=== PATIENT | female | born 1995 | race Caucasian/White ===

== ENCOUNTER 2020-02-06 10:03 | Outpatient (REF) | payer OTHER, SELFPAY | END 2020-02-06 10:04 | disposition home or self-care (01) | LOC: HO.LAB 10:03 | PROVIDERS: Visit Provider Internal Medicine | DX: Z20.828 Contact with and (suspected) exposure to other viral communicable diseases (principal) | CPT/HCPCS: 36415; 87635 ==

== ENCOUNTER → 2020-02-09 08:19 | Outpatient (BNVA) | payer OTHER, SELFPAY | PROVIDERS: Visit Provider Dietitian, Registered | DX: Z76.89 Persons encountering health services in other specified circumstances (principal) ==

== ENCOUNTER 2020-03-08 07:39 | Outpatient (REF) | payer OTHER, SELFPAY ==
[2020-03-08 08:36] LABS: MANUAL DIFF FLAG NO
[2020-03-08 08:55] LABS: Basophils Absolute Auto 0.1 X10*3/uL (0.0-0.2); Basophils Percent Auto 0.7 % (0-2); Eosinophils Absolute Auto 0.1 X10*3/uL (0.0-0.4); Hematocrit 38.4 % (37-47); Hemoglobin 11.9 g/dl (12.0-16.0); Imm Gran Abs Auto 0.02 X10*3/uL (0.00-0.03); Imm Gran Pct Auto 0.3 % (0.0-0.4); Lymphocytes Absolute Auto 3.4 X10*3/uL (1.2-4.9); Lymphocytes Percent Auto 48.7 % (20-40); Mean Corpuscular Hemoglobin 26.6 pg (27.0-33.0); Mean Corpuscular Volume 85.9 fL (80-98); Mean Platelet Volume 11.7 fL (9.4-12.3); Monocytes Absolute Auto 0.5 X10*3/uL (0.1-1.2); Monocytes Percent Auto 7.4 % (2-11); Neutrophils Absolute Auto 2.9 X10*3/uL (2.0-8.3); Neutrophils Percent Auto 40.9 % (45-73); Platelet Count 245 X10*3/uL (160-400); Red Blood Count 4.47 X10*6/uL (4.20-5.50); Red Cell Distribution Width 13.6 % (11.0-16.0); White Blood Count 7.1 X10*3/uL (4.8-10.8)
[2020-03-08 09:26] LABS: Alanine Aminotransferase 12 U/L (0-31); Albumin Level 4.2 g/dL (3.5-5.0); Alkaline Phosphatase 77 U/L (39-117); Anion Gap 12 (12-20); Aspartate Amino Transferase 16 U/L (5-31); Bilirubin Total 0.4 mg/dL (0.0-1.0); Blood Urea Nitrogen 15 mg/dL (9-16); C Reactive Protein 1.09 mg/dL (< or = 0.50); Carbon Dioxide 27 mmol/L (22-29); Chloride 105 mmol/L (96-108); Cholesterol 184 mg/dL; Estimated Glomerular Filt Rate > 60; Glucose Random 75 mg/dL (60-115); HDL Cholesterol 50 mg/dL; Iron 73 mcg/dL (30-160); LDL Cholesterol Calculated 125 mg/dl; Percent Iron Saturation 23 % (15-50); Potassium 4.4 mmol/l (3.3-5.1); Sodium 140 mmol/L (135-145); Total Iron Binding Capacity 317 mcg/dL (228-428); Total Protein 7.3 g/dL (6.5-8.0); Triglycerides 49 mg/dL; Unsaturated Iron Binding 244 ug/dL
[2020-03-08 09:30] LABS: Estimated Average Glucose 105 mg/dL; Hemoglobin A1c % 5.3 %
[2020-03-08 09:47] LABS: Ferritin 89 ng/mL (10-122); TSH reflex Free T4 1.94 mIU/mL (0.32-4.0); Vitamin D 25-OH Total 19.9 ng/mL (>30)
[2020-03-08 09:59] LABS: Folate 6.2 ng/mL (> or = 4.0); Vitamin B12 578 pg/mL (200-900)
[2020-03-11 12:17] LABS: Insulin Level Total 9.5 uIU/mL
[2020-03-11 20:26] LABS: Calcium (PTHI) 9.6 mg/dL (8.6-10.2); PTHI 35 pg/mL (14-64)
[2020-03-12 02:56] LABS: Zinc 84 mcg/dL (60-130)
[2020-03-12 20:07] LABS: Vitamin A 28 mcg/dL (38-98)
[2020-03-14 14:41] LABS: Vitamin B1 <6 nmol/L (8-30)
== END 2020-03-08 07:40 | disposition home or self-care (01) ==
LOC: HO.LAB 07:39
PROVIDERS: Visit Provider Physician Assistant
DX: E66.3 Overweight (principal)
CPT/HCPCS: 36415; 80053; 80061; 82306; 82607; 82728; 82746; 83036; 83525; 83540; 83970; 84425; 84443; 84590; 84630; 85025; 86140

== ENCOUNTER → 2020-04-08 13:56 | Outpatient (BNVA) | payer OTHER, SELFPAY | PROVIDERS: PCP Surgery; Visit Provider Surgery | DX: E66.3 Overweight (principal); Z68.27 Body mass index [BMI] 27.0-27.9, adult; Z90.3 Acquired absence of stomach [part of] | CPT/HCPCS: 99212 ==

== ENCOUNTER → 2020-07-05 10:05 | Outpatient (BNVA) | payer MEDICAID, SELFPAY | PROVIDERS: PCP Surgery; Visit Provider Surgery | DX: E66.3 Overweight (principal); K91.2 Postsurgical malabsorption, not elsewhere classified; Z90.3 Acquired absence of stomach [part of]; Z68.26 Body mass index [BMI] 26.0-26.9, adult | CPT/HCPCS: 99212 ==

== ENCOUNTER 2020-07-25 09:19 | Outpatient (REF) | payer MEDICAID, SELFPAY ==
[2020-07-25 09:51] LABS: MANUAL DIFF FLAG NO
[2020-07-25 09:55] LABS: Basophils Percent Auto 0.5 % (0-2); Eosinophils Absolute Auto 0.1 X10*3/uL (0.0-0.4); Eosinophils Percent Auto 1.4 % (0-4); Hematocrit 36.4 % (37-47); Hemoglobin 11.4 g/dl (12.0-16.0); Imm Gran Abs Auto 0.01 X10*3/uL (0.00-0.03); Imm Gran Pct Auto 0.2 % (0.0-0.4); Lymphocytes Absolute Auto 3.3 X10*3/uL (1.2-4.9); Lymphocytes Percent Auto 51.6 % (20-40); Mean Corpuscular HGB Conc 31.3 g/dl (31.0-35.0); Mean Corpuscular Hemoglobin 26.9 pg (27.0-33.0); Mean Corpuscular Volume 85.8 fL (80-98); Mean Platelet Volume 10.9 fL (9.4-12.3); Monocytes Absolute Auto 0.5 X10*3/uL (0.1-1.2); Monocytes Percent Auto 7.5 % (2-11); Neutrophils Absolute Auto 2.5 X10*3/uL (2.0-8.3); Neutrophils Percent Auto 38.8 % (45-73); Platelet Count 216 X10*3/uL (160-400); Red Blood Count 4.24 X10*6/uL (4.20-5.50); Red Cell Distribution Width 13.7 % (11.0-16.0); White Blood Count 6.4 X10*3/uL (4.8-10.8)
[2020-07-25 10:04] LABS: Estimated Average Glucose 100 mg/dL; Hemoglobin A1c % 5.1 %
[2020-07-25 10:25] LABS: Alanine Aminotransferase 9 U/L (0-31); Albumin Level 4.2 g/dL (3.5-5.0); Alkaline Phosphatase 61 U/L (39-117); Anion Gap 12 (12-20); Aspartate Amino Transferase 15 U/L (5-31); Bilirubin Total 0.5 mg/dL (0.0-1.0); Blood Urea Nitrogen 18 mg/dL (9-16); Calcium 9.4 mg/dL (8.4-10.2); Carbon Dioxide 26 mmol/L (22-29); Chloride 106 mmol/L (96-108); Cholesterol 166 mg/dL; Estimated Glomerular Filt Rate > 60; Glucose Fasting 90 mg/dL (60-99); HDL Cholesterol 56 mg/dL; Iron 105 mcg/dL (30-160); LDL Cholesterol Calculated 102 mg/dl; Percent Iron Saturation 35 % (15-50); Potassium 4.6 mmol/L (3.3-5.1); Sodium 139 mmol/L (135-145); Total Iron Binding Capacity 304 mcg/dL (228-428); Total Protein 6.9 g/dL (6.5-8.0); Triglycerides 40 mg/dL; Unsaturated Iron Binding 199 ug/dL
[2020-07-25 10:47] LABS: Thyroid Stimulating Hormone 1.66 uIU/mL (0.32-4.0); Vitamin D 25-OH Total 24.7 ng/mL (>30)
[2020-07-25 10:50] LABS: Vitamin B12 607 pg/mL (200-900)
[2020-07-28 14:06] LABS: Zinc 72 mcg/dL (60-130)
[2020-07-30 12:22] LABS: Vitamin A 33 mcg/dL (38-98)
[2020-07-30 12:46] LABS: Vitamin B1 8 nmol/L (8-30)
== END 2020-07-25 09:20 | disposition home or self-care (01) ==
LOC: HO.LAB 09:19
PROVIDERS: Visit Provider Surgery
DX: Z01.818 Encounter for other preprocedural examination (principal); K91.2 Postsurgical malabsorption, not elsewhere classified; Z90.3 Acquired absence of stomach [part of]
CPT/HCPCS: 36415; 80053; 80061; 82306; 82607; 83036; 83540; 84425; 84443; 84590; 84630; 85025; 86140

== ENCOUNTER → 2020-12-06 13:53 | Outpatient (BNVA) | payer MEDICAID, SELFPAY | PROVIDERS: PCP Internal Medicine; Referring Provider Internal Medicine; Visit Provider Surgery | DX: K91.2 Postsurgical malabsorption, not elsewhere classified (principal); Z90.3 Acquired absence of stomach [part of] | CPT/HCPCS: 99212 ==

== ENCOUNTER → 2021-04-04 08:13 | Outpatient (BNVA) | payer MEDICAID, SELFPAY | PROVIDERS: PCP Internal Medicine; Visit Provider Dietitian, Registered | DX: E66.9 Obesity, unspecified (principal); Z68.26 Body mass index [BMI] 26.0-26.9, adult | CPT/HCPCS: 97803 ==

== ENCOUNTER 2022-03-19 19:22 | Emergency (ER) | payer MEDICAID, SELFPAY ==
--- NOTE | 2022-03-19 19:37 | ED_ITS ---
HPI - Abdominal Pain General Chief Complaint: General Medical Stated Complaint: tummy incision open areas Time Seen by Provider: 03/19/22 19:49 Related Data Home Medications Medication Instructions Recorded Confirmed calcium citrate 500 mg-vit D3 12.5 g PO BID 04/08/20 07/05/20 mcg (500 unit)/5 gram oral powder gyqscqla-zfifwdtl-lwji 45 mg-folic cap PO DAILY 04/08/20 07/05/20 acid 800 mcg-vit K 120 mcg capsule (Bariatric Multivitamins) Previous Rx's Medication Instructions Recorded cholecalciferol (vitamin D3) 50 50 mcg PO DAILY #30 caps 05/07/20 mcg (2,000 unit) capsule vitamin A palmitate 10,000 unit 20,000 unit PO DAILY 30 days #60 07/31/20 tablet tabs Allergies Allergy/AdvReac Type Severity Reaction Status Date / Time No Known Allergies Allergy Verified 12/06/20 14:01 [facility] Past Medical History Medical History No pertinent past medical history Surgical History H/O abdominoplasty History of sleeve gastrectomy Hx of breast augmentation Family History Family History Father No problems noted. Mother Hypertension Asthma Sister No problems noted. Sister No problems noted. Social History Social History Alcohol intake: never Patient Tobacco Use Status: Never used Tobacco Smoked in Last 30 Days: No Use of substances other than those prescribed or required for medical reasons: No Advance Directives: No Advance Directives Information Provided: Yes Patient : No Physical Exam ED Vital Signs: Vital Signs - 24 hr 03/19/22 19:38 03/19/22 20:13 03/19/22 22:00 Temperature 97 F 98.7 F 98.6 F Pulse Rate 88 70 60 Respiratory Rate 18 14 Blood Pressure 144/82 H 127/79 112/61 Pulse Oximetry 99 100 98 Oxygen Delivery Method Room Air Room Air Room Air BMI result Body Mass Index 30.1 Course Course Course Narrative: RME-- 26yo F with recent Tummy tuck in [place] 03/03 complicated by wound dehiscence s/p repair yesterday in [place] w/ absorbable sutures presenting c/o recurrent wound dehiscence w/drainage from wounds. Surgical site open with drainage. Labs, lactic/blood cx ordered in triage. Will need surgical consult MDM - Abdominal Pain Lab Data Result diagrams: 03/19/22 20:29 03/19/22 20:29 Labs: Lab Results 03/19/22 03/19/22 03/19/22 Range/Units 20:29 20:29 20:29 WBC 9.0 (4.8-10.8) X10*3/uL RBC 4.01 L (4.20-5.50) X10*6/uL Hgb 10.7 L (12.0-16.0) g/dl Hct 34.9 L (37.0-47.0) % MCV 87.0 (80.0-98.0) fL MCH 26.7 L (27.0-33.0) pg MCHC 30.7 L (31.0-35.0) g/dl RDW 13.4 (11.0-16.0) % Plt Count 612 H (160-400) X10*3/uL MPV 9.1 L (9.4-12.3) fL Immature Gran % (Auto) 1.2 H (0.0-0.4) % Neut % (Auto) 52.3 (45-73) % Lymph % (Auto) 34.3 (20-40) % Oxford % (Auto) 9.5 (2-11) % Eos % (Auto) 2.0 (0-4) % Baso % (Auto) 0.7 (0-2) % Lymph # (Auto) 3.1 (1.2-4.9) X10*3/uL Oxford # (Auto) 0.9 (0.1-1.2) X10*3/uL Eos # (Auto) 0.2 (0.0-0.4) X10*3/uL Baso # (Auto) 0.1 (0.0-0.2) X10*3/uL Abs Immat Gran (auto) 0.11 H (0.00-0.03) X10*3/uL Absolute Neuts (auto) 4.7 (2.0-8.3) x10*3/uL Absolute Nucleated RBC 0.000 (0.0-0.012) X10*3/uL Nucleated RBC % (auto) 0.0 (0.0-0.2) /100WBC PT 12.8 (10.0-13.1) SEC INR 1.1 (0.9-1.1) Sodium 141 (135-145) mmol/L Potassium 4.7 (3.3-5.1) mmol/L Chloride 105 (96-108) mmol/L Carbon Dioxide 28 (22-29) mmol/L Anion Gap 13 (12-20) BUN 11 (9-16) mg/dL Creatinine 0.75 (0.5-1.4) mg/dL Estim Creat Clear Calc 134.4 Estimated GFR > 60 Random Glucose 93 (60-115) mg/dL Lactic Acid (0.5-2.0) mmol/L Calcium 9.6 (8.4-10.2) mg/dL Total Bilirubin 0.3 (0.0-1.0) mg/dL Direct Bilirubin < 0.2 (0.0-0.5) mg/dL AST 19 (5-31) U/L ALT 31 (0-31) U/L Alkaline Phosphatase 70 (39-117) U/L Total Protein 7.5 (6.5-8.0) g/dL Albumin 4.0 (3.5-5.0) g/dL Lipase 27 (8-78) U/L // Range/Units 20:29 WBC (4.8-10.8) X10*3/uL RBC (4.20-5.50) X10*6/uL Hgb (12.0-16.0) g/dl Hct (37.0-47.0) % MCV (80.0-98.0) fL MCH (27.0-33.0) pg MCHC (31.0-35.0) g/dl RDW (11.0-16.0) % Plt Count (160-400) X10*3/uL MPV (9.4-12.3) fL Immature Gran % (Auto) (0.0-0.4) % Neut % (Auto) (45-73) % Lymph % (Auto) (20-40) % Oxford % (Auto) (2-11) % Eos % (Auto) (0-4) % Baso % (Auto) (0-2) % Lymph # (Auto) (1.2-4.9) X10*3/uL Oxford # (Auto) (0.1-1.2) X10*3/uL Eos # (Auto) (0.0-0.4) X10*3/uL Baso # (Auto) (0.0-0.2) X10*3/uL Abs Immat Gran (auto) (0.00-0.03) X10*3/uL Absolute Neuts (auto) (2.0-8.3) x10*3/uL Absolute Nucleated RBC (0.0-0.012) X10*3/uL Nucleated RBC % (auto) (0.0-0.2) /100WBC PT (10.0-13.1) SEC INR (0.9-1.1) Sodium (135-145) mmol/L Potassium (3.3-5.1) mmol/L Chloride (96-108) mmol/L Carbon Dioxide (22-29) mmol/L Anion Gap (12-20) BUN (9-16) mg/dL Creatinine (0.5-1.4) mg/dL Estim Creat Clear Calc Estimated GFR Random Glucose (60-115) mg/dL Lactic Acid 0.8 (0.5-2.0) mmol/L Calcium (8.4-10.2) mg/dL Total Bilirubin (0.0-1.0) mg/dL Direct Bilirubin (0.0-0.5) mg/dL AST (5-31) U/L ALT (0-31) U/L Alkaline Phosphatase (39-117) U/L Total Protein (6.5-8.0) g/dL Albumin (3.5-5.0) g/dL Lipase (8-78) U/L Discharge Plan Discharge Clinical Impression: Dehiscence of surgical wound Patient Disposition: Home, Self-Care Instructions: Wound Dehiscence (ED) Additional Instructions: Please cover your wound with dry gauzes and change them at least twice a day. Please follow-up with your primary care physician and surgery tomorrow. If you have any worsening or new symptoms, please return to the emergency room or call 911 Prescriptions: No Action cholecalciferol (vitamin D3) 50 mcg (2,000 unit) capsule 50 mcg PO DAILY Qty: 30 5RF vitamin A palmitate 10,000 unit tablet 20,000 unit PO DAILY 30 Days Qty: 60 0RF Bariatric Multivitamins 45 mg iron- 800 mcg-120 mcg capsule PO DAILY calcium citrate-vitamin D3 500 mg-12.5 mcg /5 gram powder PO BID Referrals: Michele Little MD [Physician] - 1 day Interventions: ED Discharge Assessment Last Done: 03/20/22 00:17 Discharge Date/Time: 03/20/22 00:00
[2022-03-19 19:38] VITALS: BP 144/82; PULSE 88; RESP 18; TEMP 36.1; O2SAT 99; BMI 30.1
--- NOTE | 2022-03-19 20:05 | ED_ITS ---
HPI - General Adult General Chief complaint: General Medical Stated complaint: tummy incision open areas Time Seen by Provider: 03/19/22 19:49 Source: patient Mode of arrival: ambulatory Limitations: no limitations History of Present Illness HPI narrative: Patient comes to emergency room complaining of a wound dehiscence from a surgery. Patient states that on March 03, she had a tummy tuck surgery which was done in [facility]. On March 17, patient had a major dehiscence of the wound, she went back to her surgeon in [facility] who applied internal stitches. Patient flew back on the and patient comes in complaining that the wound is opening again. Patient denies any fever or chills, no pus disch arge. Patient states that her surgeon told her that in a few days, the external sutures she can cut him out herself. Patient does not have any follow-up with any surgeon. Of note, patient had a gastric sleeve surgery done here at [facility] in 2019. Related Data Home Medications Medication Instructions Recorded Confirmed calcium citrate 500 mg-vit D3 12.5 g PO BID 04/08/20 07/05/20 mcg (500 unit)/5 gram oral powder fpangzzm-tdowtxpa-gzka 45 mg-folic cap PO DAILY 04/08/20 07/05/20 acid 800 mcg-vit K 120 mcg capsule (Bariatric Multivitamins) Previous Rx's Medication Instructions Recorded cholecalciferol (vitamin D3) 50 50 mcg PO DAILY #30 caps 05/07/20 mcg (2,000 unit) capsule vitamin A palmitate 10,000 unit 20,000 unit PO DAILY 30 days #60 07/31/20 tablet tabs Allergies Allergy/AdvReac Type Severity Reaction Status Date / Time No Known Allergies Allergy Verified 12/06/20 14:01 Review of Systems Review of Systems: Constitutional : No Weight loss, No Fever, No Chills, No Night Sweats, No Fatigue, No Malaise ENT/Mouth : No Hearing loss, No Ear Pain, No Nasal Congestion, No Sinus Pain, No Hoarseness, No sore throat, No Rhinorrhea, No Swallowing Difficulty Eyes: No Eye Pain, No Swelling, No Redness, No Foreign Body, No Discharge, No Vision Changes Cardiovascular : No Chest Pain, No SOB, No Dyspnea on Exertion, No Orthopnea, No Edema, No Palpitations Respiratory : No Cough, No Sputum, No Wheezing, No Smoke Exposure, No Dyspnea Gastrointestinal : No Nausea, No Vomiting, No Diarrhea, No Constipation, No abdominal Pain, No Hematochezia, No Melena Genitourinary : no irregular bleeding, No Dysuria, No Urinary Frequency, No Hematuria, No Urinary Incontinence, No Urgency, No Flank Pain, No Urinary Flow Changes, No Hesitancy Musculoskeletal : No joint pain, No Myalgias, No Joint Swelling Skin : Complaining of a tummy tuck surgical deadhesion Neuro : No Weakness, No Numbness, No Paresthesias, No Loss of Consciousness, No Dizziness, No Headache Psych : No Anxiety/Panic, No Depression, No SI/HI/AH/VH, No Social Issues, Heme/Lymph: No Bruising, No Bleeding,No Lymphadenopathy Endocrine : No Polyuria, No Polydipsia, No Temperature Intolerance PMFSH Past Medical History Medical History No pertinent past medical history Surgical History H/O abdominoplasty History of sleeve gastrectomy Hx of breast augmentation Family History Family History Father No problems noted. Mother Hypertension Asthma Sister No problems noted. Sister No problems noted. Social History Social History Alcohol intake: never Patient Tobacco Use Status: Never used Tobacco Smoked in Last 30 Days: No Use of substances other than those prescribed or required for medical reasons: No Advance Directives: No Advance Directives Information Provided: Yes Patient : No Physical Exam ED Vital Signs: Vital Signs - 24 hr 03/19/22 19:38 03/19/22 20:13 03/19/22 22:00 Temperature 97 F 98.7 F 98.6 F Pulse Rate 88 70 60 Respiratory Rate 18 14 Blood Pressure 144/82 H 127/79 112/61 Pulse Oximetry 99 100 98 Oxygen Delivery Method Room Air Room Air Room Air BMI result Body Mass Index 30.1 Const Other: Appearance: Alert. Oriented X3. No acute distress. Eyes: Pupils equal, round and reactive to light. ENT: Pharynx normal. Neck: Normal inspection. Neck supple. No lymph nodes noted. No crepitus CVS: Normal heart rate and rhythm. Pulses normal. Normal S1 and S2 Respiratory: No respiratory distress. Breath sounds normal. No Wheezing. No rales Abdomen: Soft and nontender. No rigidity. No distention. See skin below Skin: Skin warm and dry. Surgical deadhesion in the lower abdomen Extremities: No lower extremity edema. No Lacerations. No Rash Neuro: Oriented X 3. No motor deficit. No sensory deficit. Moving all extremities. No slurred speech. CN 2 through 12 grossly intact Psych: calm, cooperative, normal affect Course Course Course Narrative: All of patient's labs are pending Patient's white blood cell count and lactic acid within normal limits. Patient is asymptomatic, has no pain. I discussed the patient with Dr. Little. Patient will follow up in outpatient basis. Medical Decision Making Lab Data Result diagrams: 03/19/22 20:29 03/19/22 20:29 Labs: Lab Results 03/19/22 03/19/22 03/19/22 Range/Units 20:29 20:29 20:29 WBC 9.0 (4.8-10.8) X10*3/uL RBC 4.01 L (4.20-5.50) X10*6/uL Hgb 10.7 L (12.0-16.0) g/dl Hct 34.9 L (37.0-47.0) % MCV 87.0 (80.0-98.0) fL MCH 26.7 L (27.0-33.0) pg MCHC 30.7 L (31.0-35.0) g/dl RDW 13.4 (11.0-16.0) % Plt Count 612 H (160-400) X10*3/uL MPV 9.1 L (9.4-12.3) fL Immature Gran % (Auto) 1.2 H (0.0-0.4) % Neut % (Auto) 52.3 (45-73) % Lymph % (Auto) 34.3 (20-40) % Jackson % (Auto) 9.5 (2-11) % Eos % (Auto) 2.0 (0-4) % Baso % (Auto) 0.7 (0-2) % Lymph # (Auto) 3.1 (1.2-4.9) X10*3/uL Jackson # (Auto) 0.9 (0.1-1.2) X10*3/uL Eos # (Auto) 0.2 (0.0-0.4) X10*3/uL Baso # (Auto) 0.1 (0.0-0.2) X10*3/uL Abs Immat Gran (auto) 0.11 H (0.00-0.03) X10*3/uL Absolute Neuts (auto) 4.7 (2.0-8.3) x10*3/uL Absolute Nucleated RBC 0.000 (0.0-0.012) X10*3/uL Nucleated RBC % (auto) 0.0 (0.0-0.2) /100WBC PT 12.8 (10.0-13.1) SEC INR 1.1 (0.9-1.1) Sodium 141 (135-145) mmol/L Potassium 4.7 (3.3-5.1) mmol/L Chloride 105 (96-108) mmol/L Carbon Dioxide 28 (22-29) mmol/L Anion Gap 13 (12-20) BUN 11 (9-16) mg/dL Creatinine 0.75 (0.5-1.4) mg/dL Estim Creat Clear Calc 134.4 Estimated GFR > 60 Random Glucose 93 (60-115) mg/dL Lactic Acid (0.5-2.0) mmol/L Calcium 9.6 (8.4-10.2) mg/dL Total Bilirubin 0.3 (0.0-1.0) mg/dL Direct Bilirubin < 0.2 (0.0-0.5) mg/dL AST 19 (5-31) U/L ALT 31 (0-31) U/L Alkaline Phosphatase 70 (39-117) U/L Total Protein 7.5 (6.5-8.0) g/dL Albumin 4.0 (3.5-5.0) g/dL Lipase 27 (8-78) U/L // Range/Units 20:29 WBC (4.8-10.8) X10*3/uL RBC (4.20-5.50) X10*6/uL Hgb (12.0-16.0) g/dl Hct (37.0-47.0) % MCV (80.0-98.0) fL MCH (27.0-33.0) pg MCHC (31.0-35.0) g/dl RDW (11.0-16.0) % Plt Count (160-400) X10*3/uL MPV (9.4-12.3) fL Immature Gran % (Auto) (0.0-0.4) % Neut % (Auto) (45-73) % Lymph % (Auto) (20-40) % Jackson % (Auto) (2-11) % Eos % (Auto) (0-4) % Baso % (Auto) (0-2) % Lymph # (Auto) (1.2-4.9) X10*3/uL Jackson # (Auto) (0.1-1.2) X10*3/uL Eos # (Auto) (0.0-0.4) X10*3/uL Baso # (Auto) (0.0-0.2) X10*3/uL Abs Immat Gran (auto) (0.00-0.03) X10*3/uL Absolute Neuts (auto) (2.0-8.3) x10*3/uL Absolute Nucleated RBC (0.0-0.012) X10*3/uL Nucleated RBC % (auto) (0.0-0.2) /100WBC PT (10.0-13.1) SEC INR (0.9-1.1) Sodium (135-145) mmol/L Potassium (3.3-5.1) mmol/L Chloride (96-108) mmol/L Carbon Dioxide (22-29) mmol/L Anion Gap (12-20) BUN (9-16) mg/dL Creatinine (0.5-1.4) mg/dL Estim Creat Clear Calc Estimated GFR Random Glucose (60-115) mg/dL Lactic Acid 0.8 (0.5-2.0) mmol/L Calcium (8.4-10.2) mg/dL Total Bilirubin (0.0-1.0) mg/dL Direct Bilirubin (0.0-0.5) mg/dL AST (5-31) U/L ALT (0-31) U/L Alkaline Phosphatase (39-117) U/L Total Protein (6.5-8.0) g/dL Albumin (3.5-5.0) g/dL Lipase (8-78) U/L Discharge Plan Discharge Clinical Impression: Dehiscence of surgical wound Patient Disposition: Home, Self-Care Instructions: Wound Dehiscence (ED) Additional Instructions: Please cover your wound with dry gauzes and change them at least twice a day. Please follow-up with your primary care physician and surgery tomorrow. If you have any worsening or new symptoms, please return to the emergency room or call 911 Prescriptions: No Action cholecalciferol (vitamin D3) 50 mcg (2,000 unit) capsule 50 mcg PO DAILY Qty: 30 5RF vitamin A palmitate 10,000 unit tablet 20,000 unit PO DAILY 30 Days Qty: 60 0RF Bariatric Multivitamins 45 mg iron- 800 mcg-120 mcg capsule PO DAILY calcium citrate-vitamin D3 500 mg-12.5 mcg /5 gram powder PO BID Referrals: Michele Little MD [Physician] - 1 day
--- OUTSIDE RECORDS SUMMARY | 2022-03-19 20:11 | XMS_ITS | Continuity of Care Document ---
:1995 Author Organization [facility] Adult Address [address] [place] [address]- Care Team Providers Name Role Phone Hammad ROSE, Amarilys Primary Care Physician [place] [facility] [place] 07[place]20 - 10/10/20 [facility] [address] [place] [address]- Attending Physician: Demetrius Berry MD Allergies, Adverse Reactions, Alerts Substance Reaction Severity Status NKA Active Medications nortriptyline 10 mg oral capsule 1 capsule = 10 mg, By Mouth, Daily at bedtime, Increase after 1 week to 2 at night, # 60 capsule, 6 Refills, Maintenance, 09/01/13 15:23:09, 1 capsule By Mouth Daily at bedtime,Instr:Increase after 1 week to 2 at night Start Date: 09/01/13 Status: Orderedrizatriptan 10 mg oral tablet See Instructions, 1 tablet By Mouth for headache. May repeat in 2 hrs PRN. This replces 5 mg dose. 2bottles, one for school, # 9 tablet, 1 Refills, Maintenance, 09/01/13 15:20:38, 1 tablet By Mouth for headache. May repeat in 2 hrs PRN. This replces... Start Date: 09/01/13 Status: Ordered Problem List Condition Effective Dates Status Health Status Informant S/P gastric surgery(Confirmed)1 Active Migraine with aura(Confirmed) Active Morbid obesity(Confirmed) Active Encounter to establish care(Confirmed) Active 1Gastric sleeve surgery in July 2019 Social History Social History Type Response Smoking Status Never smoker entered on: 07/30/15 Sex
--- OUTSIDE RECORDS SUMMARY | 2022-03-19 20:11 | XMS_ITS | Continuity of Care Document ---
:1995 Author Organization [facility] Adult Address [address] [place] [id number]- Care Team Providers Name Role Phone Amarilys Cueva NP Primary Care Physician [place] [facility] [place]/20 [facility] Adult [address] [place] [id number]- Encounter Diagnosis Migraine with aura (Discharge Diagnosis) - 07/30/20 Morbid obesity (Discharge Diagnosis) - 07/30/20 Encounter to establish care (Discharge Diagnosis) - 07/30/20 S/P gastric surgery (Discharge Diagnosis) - 07/30/20 Attending Physician: Demetrius Berry MD Referring Physician: Amarilys Cueva NP Allergies, Adverse Reactions, Alerts Substance Reaction Severity [...] Active 1Gastric sleeve surgery in July 2019 Diagnosis Diagnosis Type Effective Dates Health Status Clinical In formant Service S/P gastric Discharge 07/30/20 surgery Diagnosis Encounter to Discharge 07/30/20 establish care Diagnosis Migraine with Discharge 07/30/20 aura Diagnosis Morbid obesity Discharge 07/30/20 Diagnosis Procedures Procedure Date Related Diagnosis Body Site Status Hx of Gastric sleeve surgery1 Completed arch 2019 Social History Social History Type Response Smoking Status Never smoker entered on: 07/30/15 Sex
--- OUTSIDE RECORDS SUMMARY | 2022-03-19 20:11 | XMS_ITS | Continuity of Care Document ---
:1995 Author Organization [facility] Adult Address [address] [place] [address]- Care Team Providers Name Role Phone Hammad ROSE, Amarilys Primary Care Physician [place] [facility] [place]20 - 08/29/20 [facility] Adult [address] [place] [address]- Attending Physician: Lindsay Caicedo Admitting Physician: Lindsay Caicedo Referring Physician: Admtr ArWillie Allergies, Adverse Reactions, Alerts Substance Reaction Severity [...]
--- OUTSIDE RECORDS SUMMARY | 2022-03-19 20:11 | XMS_ITS | Continuity of Care Document ---
:1995 Author Organization [facility] Adult Address [address] [place] [address]- Care Team Providers Name Role Phone Hammad ROSE, Amarilys Primary Care Physician Encounter [facility] [place] Date(s): 09/10/20 - 10/10/20 [facility] Adult [address] [place] [address]- Attending Physician: Lindsay Caicedo Admitting Physician: Lindsay [...]
[2022-03-19 20:13] VITALS: BP 127/79; PULSE 70; RESP 14; TEMP 37.1; O2SAT 100
[2022-03-19 20:31] LABS: MANUAL DIFF FLAG NO
[2022-03-19 20:33] LABS: Basophils Absolute Auto 0.1 X10*3/uL (0.0-0.2); Basophils Percent Auto 0.7 % (0-2); Eosinophils Absolute Auto 0.2 X10*3/uL (0.0-0.4); Hematocrit 34.9 % (37.0-47.0); Hemoglobin 10.7 g/dl (12.0-16.0); Imm Gran Abs Auto 0.11 X10*3/uL (0.00-0.03); Imm Gran Pct Auto 1.2 % (0.0-0.4); Lymphocytes Absolute Auto 3.1 X10*3/uL (1.2-4.9); Lymphocytes Percent Auto 34.3 % (20-40); Mean Corpuscular HGB Conc 30.7 g/dl (31.0-35.0); Mean Corpuscular Hemoglobin 26.7 pg (27.0-33.0); Mean Platelet Volume 9.1 fL (9.4-12.3); Monocytes Absolute Auto 0.9 X10*3/uL (0.1-1.2); Monocytes Percent Auto 9.5 % (2-11); Neutrophils Absolute Auto 4.7 x10*3/uL (2.0-8.3); Neutrophils Percent Auto 52.3 % (45-73); Platelet Count 612 X10*3/uL (160-400); Red Blood Count 4.01 X10*6/uL (4.20-5.50); Red Cell Distribution Width 13.4 % (11.0-16.0)
[2022-03-19 20:43] LABS: Lactic Acid 0.8 mmol/L (0.5-2.0)
[2022-03-19 20:47] LABS: Alanine Aminotransferase 31 U/L (0-31); Alkaline Phosphatase 70 U/L (39-117); Anion Gap 13 (12-20); Aspartate Amino Transferase 19 U/L (5-31); Bilirubin Direct < 0.2 mg/dL (0.0-0.5); Bilirubin Total 0.3 mg/dL (0.0-1.0); Blood Urea Nitrogen 11 mg/dL (9-16); Calcium 9.6 mg/dL (8.4-10.2); Carbon Dioxide 28 mmol/L (22-29); Chloride 105 mmol/L (96-108); Creatinine Clr Calc Pharmacy 134.4; Estimated Glomerular Filt Rate > 60; Glucose Random 93 mg/dL (60-115); Lipase 27 U/L (8-78); Potassium 4.7 mmol/L (3.3-5.1); Sodium 141 mmol/L (135-145); Total Protein 7.5 g/dL (6.5-8.0)
[2022-03-19 21:15] LABS: INTERNATIONAL NORM RATIO 1.1 (0.9-1.1); Prothrombin Time 12.8 SEC (10.0-13.1)
[2022-03-19 22:00] VITALS: BP 112/61; PULSE 60; TEMP 37; O2SAT 98
== END 2022-03-20 | disposition home or self-care (01) ==
PROVIDERS: Physician Assistant; Emergency Provider Emergency Medicine
DX: T81.30XA Disruption of wound, unspecified, initial encounter (principal); Y83.9 Surgical procedure, unspecified as the cause of abnormal reaction of the patient, or of later complication, without mention of misadventure at the time of the procedure; Y92.9 Unspecified place or not applicable; Z79.899 Other long term (current) drug therapy
CPT/HCPCS: 36415; 80048; 80076; 83605; 83690; 85025; 85610; 87040; 99283; 99284

== ENCOUNTER 2023-02-04 04:56 | Emergency (ER) | payer OTHER, SELFPAY ==
[2023-02-04 05:07] VITALS: BP 131/83; PULSE 98; RESP 16; TEMP 36.1; O2SAT 99; BMI 31.6
[2023-02-04 05:16] LABS: IDNOW Serial# 08D9AD1C; Strep A Nucleic Acid Negative (Negative)
--- NOTE | 2023-02-04 05:36 | ED.GENADULT ---
HPI - General Adult General Chief complaint: General Medical Stated complaint: difficulty swallowing Time Seen by Provider: 02/04/23 05:13 Source: patient Mode of arrival: ambulatory Limitations: no limitations History of Present Illness HPI narrative: Tingling of sore throat since last night with history of left lower wisdom tooth problem in the past but nothing lately does have pain will choose swallows no fever no chills no other family member sick patient a rapid strep test done which was negative no cough no fever no chills Related Data Home Medications Medication Instructions Recorded Confirmed calcium citrate 500 mg-vit D3 12.5 g PO BID 04/08/20 07/05/20 mcg (500 unit)/5 gram oral powder bvgdxawx-yagstztx-uyib 45 mg-folic cap PO DAILY 04/08/20 07/05/20 acid 800 mcg-vit K 120 mcg capsule (Bariatric Multivitamins) Previous Rx's Medication Instructions Recorded cholecalciferol (vitamin D3) 50 50 mcg PO DAILY #30 caps 05/07/20 mcg (2,000 unit) capsule vitamin A palmitate 3,000 mcg 20,000 unit PO DAILY 30 days #60 07/31/20 (10,000 unit) tablet tabs amoxicillin 875 mg tablet 875 mg PO BID #20 tabs 02/04/23 ibuprofen 600 mg tablet 600 mg PO Q6H PRN fever or pain 02/04/23 #30 tabs Allergies Allergy/AdvReac Type Severity Reaction Status Date / Time No Known Allergies Allergy Verified 12/06/20 14:01 Review of Systems Review of Systems: Yes all other systems are reviewed and are negative PMFSH Past Medical History Medical History No pertinent past medical history Surgical History H/O abdominoplasty Hx of breast augmentation History of sleeve gastrectomy Family History Family History Father No problems noted. Mother Hypertension Asthma Sister No problems noted. Sister No problems noted. Social History Social History Alcohol intake: never Patient Tobacco Use Status: Never used Tobacco Advance Directives: No Advance Directives Information Provided: Yes Physical Exam ED Vital Signs: Vital Signs - 24 hr 02/04/23 05:07 Temperature 97.0 F Pulse Rate 98 Respiratory Rate 16 Blood Pressure 131/83 Pulse Oximetry 99 Oxygen Delivery Method Room Air BMI result Body Mass Index 31.6 Appearance: Alert. Oriented X3. No acute distress. ENT: Pharynx erythematous+ no exudate gumline normal no tenderness no active cavity Oral Mucosa moist Neck: Normal inspection. Neck supple. CVS: Normal heart rate and rhythm. Pulses normal. Respiratory: No respiratory distress. Equal air entry bilateral, no wheezing/rales/rhonchi Medical Decision Making Medical Decision Making [facility] Narrative: Patient clinically acute pharyngitis likely strep throat although rapid strep is negative would give antibiotic discharge patient home Lab Data [facility] Lab Attestation statement: I reviewed the patient's lab results. Labs: Lab Results 02/04/23 Range/Units 05:05 S. pyogenes GrpA CONRADO Negative (Negative) Discharge Plan Discharge Clinical Impression: Acute pharyngitis Patient Disposition: Home, Self-Care Instructions: Pharyngitis (ED) Additional Instructions: Saline gargles as advised, possibly have strep pharyngitis although test is negative Antibiotic and pain medication as prescribed Follow with PCP as needed Prescriptions: New amoxicillin 875 mg tablet 875 mg PO BID Qty: 20 0RF ibuprofen 600 mg tablet 600 mg PO Q6H PRN (Reason: fever or pain) Qty: 30 0RF No Action cholecalciferol (vitamin D3) 50 mcg (2,000 unit) capsule 50 mcg PO DAILY Qty: 30 5RF vitamin A palmitate 10,000 unit tablet 20,000 unit PO DAILY 30 Days Qty: 60 0RF Bariatric Multivitamins 45 mg iron- 800 mcg-120 mcg capsule PO DAILY calcium citrate-vitamin D3 500 mg-12.5 mcg /5 gram powder PO BID
[2023-02-04] MEDS: Amoxicillin 500 MG CAPSULE PO (05:49)
[2023-02-04] MEDS: Ibuprofen 600 MG TABLET PO (05:49)
== END 2023-02-04 05:55 | disposition home or self-care (01) ==
PROVIDERS: Emergency Provider Internal Medicine
DX: J02.9 Acute pharyngitis, unspecified (principal); Z90.3 Acquired absence of stomach [part of]
CPT/HCPCS: 87651; 99283

== ENCOUNTER → 2023-04-05 10:57 | Outpatient (BNVA) | payer OTHER, SELFPAY | PROVIDERS: Visit Provider Physician Assistant Surgical ==

== ENCOUNTER 2023-04-09 16:17 | Outpatient (AMB) | payer OTHER, SELFPAY ==
--- NOTE | 2023-04-05 10:59 | MHC.OFFVISWM ---
Intake VS Expanded 04/05/23 11:09 BP 119/74 Blood Pressure Location Rt brachial Blood Pressure Position Sitting Pulse 71 Pulse Source Pulse Oximeter Temp 97.6 F Temperature Source Temporal Artery Scan Pulse Oximetry 98 Oxygen Delivery Method Room Air Height 5 ft 8 in Weight 211 lb 3.2 oz BMI 32.1 Body Fat % 40.6 Body Fat Mass 85.8 Fat Free Mass 125.2 Visceral Fat Rating 0 Body Water % 42.6 Body Water Mass 90.0 Muscle Mass/Score 118.8 Basal Metabolic Rate/Score 1,774 Intake Visit Reasons: (OV) PO LSG 07/05/2019 Allergies No Known Allergies Allergy (Verified 04/05/23 11:03) PFSH Medical History No pertinent past medical history Surgical History H/O abdominoplasty Hx of breast augmentation History of sleeve gastrectomy Family History Father No problems noted. Mother Hypertension Asthma Sister No problems noted. Sister No problems noted. Social History (Updated 04/05/23 @ 11:04 by Daylin Mohr CMA) Alcohol intake: current Alcohol intake frequency: holidays/special occasions only Patient Tobacco Use Status: Never used Tobacco Coding
[2023-04-05 11:09] VITALS: BP 119/74; PULSE 71; TEMP 36.4; O2SAT 98; BMI 32.1
[2023-04-09 15:53] VITALS: BMI 32.1
--- NOTE | 2023-04-09 15:53 | MHC.OFFVISWM ---
Intake VS Expanded 04/05/23 11:09 04/09/23 15:53 BP 119/74 Blood Pressure Location Rt brachial Blood Pressure Position Sitting Pulse 71 Pulse Source Pulse Oximeter Temp 97.6 F Temperature Source Temporal Artery Scan Pulse Oximetry 98 Oxygen Delivery Method Room Air Height 5 ft 8 in Weight 211 lb 3.2 oz BMI 32.1 32.1 Body Fat % 40.6 Body Fat Mass 85.8 Fat Free Mass 125.2 Visceral Fat Rating 0 Body Water % 42.6 Body Water Mass 90.0 Muscle Mass/Score 118.8 Basal Metabolic Rate/Score 1,774 Intake Visit Reasons: (TV) PO LSG 07/05/2019 [employer] Required: No Allergies No Known Allergies Allergy (Verified 04/05/23 11:03) Medication List - Last Reconciled 04/09/23 by ANISHA Schuster calcium citrate-vitamin D3 500 mg-12.5 mcg /5 gram grams PO BID zukpwrbhiksa-jnw-ugis-FA-vit K 45 mg iron- 800 mcg-120 mcg (Bariatric Multivitamins) caps PO DAILY HPI HPI Comments History of Present Illness Details The patient is a pleasant 27-year-old female who returns to the office. She is approximately 3 years 9 months status post sleeve gastrectomy performed by Dr. Eaton on 07/15/2019. Her initial weight on 03/14/2019 was 272.6 lb with and operative weight of 247.2 lb she was last seen in the office in April 2021 with a weight of 171 lb and BMI of 25.9. She states over the last 2 years she has gone through several life changes and was depressed. She feels as though she has been more consistent over the last 5 months. She wants to re-start a healthy habit lifestyle. wake 830 am, bed at MN, meal at 2, work 2-8 pm meal at noon. work as an estPeopleAdmintician, [employer] states her goal is to get back in healthy habits and achieve a weight of 160-165 pounds. Meal plan: protein shake, Premier protein RTD, 9 am or 1030, 11 am based on work schedule lunch 2-3 pm - grains w protein and side salad meal 9 pm - fast food drinking 64 oz water daily, no soda or juice ETOH 2 x per month wine or liquor, 1-2, no tobacco, no cannabis Exercise plan: pelaton at home 3-4 x per week 30-45 minutes, not tracking calories. [facility]LY [facility] Medical History No pertinent past medical history Surgical History H/O abdominoplasty Hx of breast augmentation History of sleeve gastrectomy Family History Father No problems noted. Mother Hypertension Asthma Sister No problems noted. Sister No problems noted. Social History Alcohol intake: current Alcohol intake frequency: holidays/special occasions only Patient Tobacco Use Status: Never used Tobacco Review of Systems Const All systems reviewed & are unremarkable except as noted in HPI and below Physical Exam Vital Signs: Last Vital Signs Temp 97.6 F 04/05/23 11:09 Pulse 71 04/05/23 11:09 BP 119/74 04/05/23 11:09 Pulse Ox 98 04/05/23 11:09 Oxygen Delivery Method Room Air 04/05/23 11:09 BMI result Body Mass Index 32.1 Assessment & Plan Assessment & Plan (1) Obesity (BMI 30-39.9): Code(s): E66.9 - Obesity, unspecified Plan: Patient wishes to re-engage in the surgical weight loss program. She is approximately 3 years 9 months postoperative. She has been taking a bariatric multivitamin although not completely consistently a as well as a calcium plus D. Check full labs. Meal plan: Using Premier protein powder and unsweetened almond milk Shake 2 scoops 9-11 a.m.. Meal noon 7 forks of protein in 7 forks of vegetables. Fit crunch protein bar from 2-4 p.m.. Another shake 1 scoop from 6-8 p.m.. Exercise plan, utilizing her home pelaton bike, goal is 400 calories 5 days a week with 2 days of yoga. Ultimately we will transition to add in weights although right now her focus and priority is to burn fat. Orders: Orders Complete Blood Count Auto Diff Today E50.9 - Vitamin A deficiency, unspecified, E66.9 - Obesity, unspecified, K91.2 - Postsurgical malabsorption, not elsewhere classified, Z90.3 - Acquired absence of stomach [part of] Zinc Today E50.9 - Vitamin A deficiency, unspecified, E66.9 - Obesity, unspecified, K91.2 - Postsurgical malabsorption, not elsewhere classified, Z90.3 - Acquired absence of stomach [part of] C Reactive Protein Today E50.9 - Vitamin A deficiency, unspecified, E66.9 - Obesity, unspecified, K91.2 - Postsurgical malabsorption, not elsewhere classified, Z90.3 - Acquired absence of stomach [part of] Ferritin Today E50.9 - Vitamin A deficiency, unspecified, E66.9 - Obesity, unspecified, K91.2 - Postsurgical malabsorption, not elsewhere classified, Z90.3 - Acquired absence of stomach [part of] Vitamin D 25-OH Total Today E50.9 - Vitamin A deficiency, unspecified, E66.9 - Obesity, unspecified, K91.2 - Postsurgical malabsorption, not elsewhere classified, Z90.3 - Acquired absence of stomach [part of] Basic Metabolic Panel Today E50.9 - Vitamin A deficiency, unspecified, E66.9 - Obesity, unspecified, K91.2 - Postsurgical malabsorption, not elsewhere classified, Z90.3 - Acquired absence of stomach [part of] Insulin Today E50.9 - Vitamin A deficiency, unspecified, E66.9 - Obesity, unspecified, K91.2 - Postsurgical malabsorption, not elsewhere classified, Z90.3 - Acquired absence of stomach [part of] Hemoglobin A1c Today E50.9 - Vitamin A deficiency, unspecified, E66.9 - Obesity, unspecified, K91.2 - Postsurgical malabsorption, not elsewhere classified, Z90.3 - Acquired absence of stomach [part of] Lipid Panel Today E50.9 - Vitamin A deficiency, unspecified, E66.9 - Obesity, unspecified, K91.2 - Postsurgical malabsorption, not elsewhere classified, Z90.3 - Acquired absence of stomach [part of] IRON PROFILE Today E50.9 - Vitamin A deficiency, unspecified, E66.9 - Obesity, unspecified, K91.2 - Postsurgical malabsorption, not elsewhere classified, Z90.3 - Acquired absence of stomach [part of] Vitamin B12 and Folate Today E50.9 - Vitamin A deficiency, unspecified, E66.9 - Obesity, unspecified, K91.2 - Postsurgical malabsorption, not elsewhere classified, Z90.3 - Acquired absence of stomach [part of] Vitamin B1 Today E50.9 - Vitamin A deficiency, unspecified, E66.9 - Obesity, unspecified, K91.2 - Postsurgical malabsorption, not elsewhere classified, Z90.3 - Acquired absence of stomach [part of] Vitamin A Today E50.9 - Vitamin A deficiency, unspecified, E66.9 - Obesity, unspecified, K91.2 - Postsurgical malabsorption, not elsewhere classified, Z90.3 - Acquired absence of stomach [part of] TSH reflex Free T4 Today E50.9 - Vitamin A deficiency, unspecified, E66.9 - Obesity, unspecified, K91.2 - Postsurgical malabsorption, not elsewhere classified, Z90.3 - Acquired absence of stomach [part of] Quality Reporting (2019) Adult ([facility] 13806/24/68) Body Mass Index: 32.1 Telehealth Telehealth Location of provider rendering services: practice address Location of patient: address on file Patient Identification confirmed using: Name, : Yes Telehealth method: voice only Patient verbally consented to treatment: Yes Patient verbally consented to billing insurance company: Yes Patient informed of any privacy concerns related to visit: Yes Minutes spent on Phone/Video with Pt.: 25 Coding Level of Care Code Tele Est Pt Level 4 (30439) Diagnoses Obesity (BMI 30-39.9) E66.9 Time Spent (min) 35
== END 2023-04-09 16:57 | disposition home or self-care (01) ==
PROVIDERS: Visit Provider Physician Assistant Surgical
DX: E66.9 Obesity, unspecified (principal)
CPT/HCPCS: 99214

== ENCOUNTER → 2023-04-09 16:17 | Outpatient (BNVA) | payer OTHER, SELFPAY | PROVIDERS: Visit Provider Physician Assistant Surgical ==

== ENCOUNTER 2024-05-17 11:48 | Outpatient (AMB) | payer OTHER, SELFPAY ==
--- NOTE | 2024-05-17 11:37 | A.OFFVIS_ITS ---
VS Expanded 05/17/24 11:39 Height 5 ft 8 in Weight 198 lb BMI 30.1 Intake Visit Reasons: (TV) PO LSG 07/05/2019 Allergies No Known Allergies Allergy (Verified 04/05/23 11:03) HPI Comments Details: The patient is a pleasant 28-year-old female who returns to the office. She is approximately 4 years 10 months status post sleeve gastrectomy performed by Dr. Eaton on 07/15/2019. Her initial weight on 03/14/2019 was 272.6 lb with and operative weight of 247.2 lb she was last seen in the office in April 2023 with a weight of 211.2 lb and BMI of 32.1. Weight today is 198 lb with a BMI of 30.1. She states over the last 2 years she has gone through several life changes and was depressed. She wants to re-start a healthy habit lifestyle. following meal plan for 3 months Meal plan: Using Premier protein rtd Shake 9-11 a.m.. Meal 1 pm 3 oz of protein in 3 oz of vegetables. one protein bar, 2-3 x per week 2-4 p.m.. Another meal 530 p.m.. drinking 64 oz water daily, no soda or juice ETOH 2 x per month wine or liquor, 1-2, no tobacco, no cannabis Exercise plan: pilates 1-2 x per week pelaton at home 3-4 x per week 30-45 minutes, not tracking calorie PFSH Medical History No pertinent past medical history Surgical History H/O abdominoplasty Hx of breast augmentation History of sleeve gastrectomy Family History Father No problems noted. Mother Hypertension Asthma Sister No problems noted. Sister No problems noted. Social History Alcohol intake: current Alcohol intake frequency: holidays/special occasions only Patient Tobacco Use Status: Never used Tobacco Physical Exam Const General: healthy appearing and no acute distress Resp Effort & Inspection: normal respiratory effort Auscultation: clear to auscultation bilaterally Cardio Rate: regular rate Rhythm: regular rhythm GI Auscultation: normal bowel sounds Extrem General: Yes normal to inspection Assessment & Plan Assessment & Plan (1) History of sleeve gastrectomy: Comment: 2019 Code(s): Z90.3 - Acquired absence of stomach [part of] Category: Surgical Plan: Check follow-up labs per patient request. She does have a history of iron- deficiency anemia as well as vitamin deficiencies. Using Premier protein rtd 1/2 Shake 9-11 a.m.. Meal 1 pm 6 forks of protein in 6 forks of vegetables. other 1/2 of shake 2-4 p.m.. Another meal 530 p.m. Discussed the critical nature of exercise. We will follow up in the office in 6 weeks. Orders: Orders IRON PROFILE Today E50.9 - Vitamin A deficiency, unspecified, Z90.3 - Acquired absence of stomach [part of] Comprehensive Met. Panel Today E50.9 - Vitamin A deficiency, unspecified, Z90.3 - Acquired absence of stomach [part of] C Reactive Protein Today E50.9 - Vitamin A deficiency, unspecified, Z90.3 - Acquired absence of stomach [part of] Vitamin B1 Today E50.9 - Vitamin A deficiency, unspecified, Z90.3 - Acquired absence of stomach [part of] Ferritin Today E50.9 - Vitamin A deficiency, unspecified, Z90.3 - Acquired absence of stomach [part of] Insulin Today E50.9 - Vitamin A deficiency, unspecified, Z90.3 - Acquired absence of stomach [part of] Hemoglobin A1c Today E50.9 - Vitamin A deficiency, unspecified, Z90.3 - Acquired absence of stomach [part of] Complete Blood Count Auto Diff Today E50.9 - Vitamin A deficiency, unspecified, Z90.3 - Acquired absence of stomach [part of] Lipid Panel Today E50.9 - Vitamin A deficiency, unspecified, Z90.3 - Acquired absence of stomach [part of] Vitamin B12 and Folate Today E50.9 - Vitamin A deficiency, unspecified, Z90.3 - Acquired absence of stomach [part of] Zinc Today E50.9 - Vitamin A deficiency, unspecified, Z90.3 - Acquired absence of stomach [part of] Vitamin A Today E50.9 - Vitamin A deficiency, unspecified, Z90.3 - Acquired absence of stomach [part of] TSH reflex Free T4 Today E50.9 - Vitamin A deficiency, unspecified, Z90.3 - Acquired absence of stomach [part of] Vitamin D 25-OH Total Today E50.9 - Vitamin A deficiency, unspecified, Z90.3 - Acquired absence of stomach [part of]
[2024-05-17 11:39] VITALS: BMI 30.1
== END 2024-05-17 12:13 | disposition home or self-care (01) ==
LOC: HO.HBS 11:48
PROVIDERS: PCP Internal Medicine; Visit Provider Physician Assistant Surgical
DX: E66.811 Obesity, class 1 (principal); Z68.30 Body mass index [BMI] 30.0-30.9, adult; Z90.3 Acquired absence of stomach [part of]; Z98.84 Bariatric surgery status
CPT/HCPCS: 99213; G2211

== ENCOUNTER → 2024-05-17 11:48 | Outpatient (BNVA) | payer OTHER, SELFPAY | PROVIDERS: PCP Internal Medicine; Visit Provider Physician Assistant Surgical | DX: E50.9 Vitamin A deficiency, unspecified (principal); Z71.3 Dietary counseling and surveillance; Z98.84 Bariatric surgery status | CPT/HCPCS: 99212 ==

== ENCOUNTER 2024-08-04 09:19 | Outpatient (REF) | payer OTHER, SELFPAY ==
[2024-08-04 10:10] LABS: MANUAL DIFF FLAG NO
[2024-08-04 10:33] LABS: Basophils Absolute Auto 0.1 X10*3/uL (0.0-0.2); Eosinophils Absolute Auto 0.1 X10*3/uL (0.0-0.4); Eosinophils Percent Auto 1.9 % (0-4); Hematocrit 40.7 % (37.0-47.0); Hemoglobin 12.8 g/dl (12.0-16.0); Imm Gran Abs Auto 0.01 X10*3/uL (0.00-0.03); Imm Gran Pct Auto 0.2 % (0.0-0.4); Lymphocytes Absolute Auto 2.6 X10*3/uL (1.2-4.9); Lymphocytes Percent Auto 49.1 % (20-40); Mean Corpuscular HGB Conc 31.4 g/dl (31.0-35.0); Mean Corpuscular Volume 85.9 fL (80.0-98.0); Mean Platelet Volume 10.5 fL (9.4-12.3); Monocytes Absolute Auto 0.4 X10*3/uL (0.1-1.2); Neutrophils Absolute Auto 2.1 x10*3/uL (2.0-8.3); Neutrophils Percent Auto 39.8 % (45-73); Platelet Count 284 X10*3/uL (160-400); Red Blood Count 4.74 X10*6/uL (4.20-5.50); Red Cell Distribution Width 13.1 % (11.0-16.0); White Blood Count 5.2 X10*3/uL (4.8-10.8)
--- OUTSIDE RECORDS SUMMARY | 2024-08-04 11:02 | XMS_ITS | Clinical Summary ---
Author Organization [employer] Address [address] [facility] [address] [place] [id number] Care Team Providers Care Line Locator Name Role Phone Unavailable Primary Care Provider [...] patient's age to complete this topic Insurance [facility]
[2024-08-04 11:17] LABS: Estimated Average Glucose 105 mg/dL; Hemoglobin A1C 115.9135 umol/L; Hemoglobin A1c % 5.3 % (<6.0); Total Hemoglobin (HGBA1C) 3343.4563 umol/L
[2024-08-04 12:16] LABS: Alanine Aminotransferase 18 U/L (0-31); Albumin Level 4.2 g/dL (3.5-5.0); Alkaline Phosphatase 70 U/L (39-117); Anion Gap 8 (12-20); Aspartate Amino Transferase 20 U/L (5-31); Bilirubin Total 0.3 mg/dL (0.0-1.0); Blood Urea Nitrogen 16 mg/dL (9-16); C Reactive Protein 0.52 mg/dL (< or = 0.50); Calcium 9.4 mg/dL (8.4-10.2); Carbon Dioxide 27 mmol/L (22-29); Chloride 111 mmol/L (96-108); Cholesterol 178 mg/dL (<200); Estimated Glomerular Filt Rate > 60; Glucose Random 88 mg/dL (60-115); HDL Cholesterol 56 mg/dL (>40); Iron 75 mcg/dL (30-160); LDL Cholesterol Calculated 115 mg/dL (<100); Percent Iron Saturation 26 % (15-50); Potassium 4.2 mmol/L (3.3-5.1); Sodium 142 mmol/L (135-145); Total Iron Binding Capacity 286 mcg/dL (228-428); Total Protein 7.3 g/dL (6.5-8.0); Triglycerides 39 mg/dL (<150); Unsaturated Iron Binding 211 ug/dL
[2024-08-04 12:26] LABS: Folate 5.6 ng/mL (> or = 4.0); Vitamin B12 791 pg/mL (200-900)
[2024-08-04 12:56] LABS: Ferritin 67 ng/mL (10-122); TSH reflex Free T4 1.66 uIU/mL (0.32-4.0); Vitamin D 25-OH Total 17.8 ng/mL (>30)
[2024-08-04 14:40] LABS: Insulin 16 uU/mL (2-29)
[2024-08-08 01:28] LABS: Zinc 64 mcg/dL (60-130)
[2024-08-09 01:58] LABS: Vitamin A 49 mcg/dL (38-98)
[2024-08-13 16:33] LABS: Vitamin B1 8 nmol/L (8-30)
== END 2024-08-04 09:20 | disposition home or self-care (01) ==
LOC: HO.LAB 09:19
PROVIDERS: PCP Internal Medicine; Visit Provider Physician Assistant Surgical
DX: Z90.3 Acquired absence of stomach [part of] (principal); E50.9 Vitamin A deficiency, unspecified
CPT/HCPCS: 36415; 80053; 80061; 82306; 82607; 82728; 82746; 83036; 83525; 83540; 84425; 84443; 84590; 84630; 85025; 86140; 99212

== ENCOUNTER 2024-08-04 09:19 | Outpatient (AMB) | payer OTHER, SELFPAY ==
--- NOTE | 2024-08-04 09:22 | MHC.OFFVISWM ---
VS Expanded 08/04/24 09:23 BP 138/85 Blood Pressure Location Rt brachial Blood Pressure Position Sitting Pulse 73 Pulse Source Pulse Oximeter Temp 97.1 F Temperature Source Temporal Artery Scan Pulse Oximetry 96 Oxygen Delivery Method Room Air Height 5 ft 8 in Weight 203 lb 9.6 oz BMI 31.0 Body Fat % 40.2 Body Fat Mass 81.8 Fat Free Mass 121.6 Visceral Fat Rating 7.0 Body Water % 42.9 Body Water Mass 87.4 Muscle Mass/Score 115.6 Basal Metabolic Rate/Score 1,716 Intake Visit Reasons: (OV) PO LSG 07/05/2019 Allergies No Known Allergies Allergy (Verified 08/04/24 09:24) Medication List - Last Reconciled 08/04/24 by ANISHA Schuster calcium citrate-vitamin D3 500 mg-12.5 mcg /5 gram grams PO BID nfqicjgvvypp-cqn-vkvq-FA-vit K 45 mg iron- 800 mcg-120 mcg (Bariatric Multivitamins) caps PO DAILY HPI Comments Details: The patient is a pleasant 28-year-old female who returns to the office. She is approximately 5 years status post sleeve gastrectomy performed by Dr. Eaton on 07/15/2019. Her initial weight on 03/14/2019 was 272.6 lb with and operative weight of 247.2 lb Weight today is 203.6 lb with a BMI of 30.9. She states that since last being seen, she was traveling in [place] for about a month. She is up approximately 5.6 lb, she did walk quite a bit in [place] but did not follow any particular meal plan. She states that she is now ready to engage in a structured meal and exercise plan. States she would like to lose about 30 pounds. Taking MVI Meal plan: Using Premier protein rtd 1/2 Shake 9-11 a.m.. Meal 1 pm 6 forks of protein in 6 forks of vegetables. other 1/2 of shake 2-4 p.m.. Another meal 530 p.m. drinking 64 oz water daily Exercise plan: [employer], 30 min treadmill, 300 jacob, 3-4 days per week then weight training pilates 2 x per week Any post op complications: none PORTER: never DM: never HTN: never Hyperlipidemia: never GERD:?0-5 scale ??0 = no symptoms ??1 = symptoms noticeable but not bothersome 2 =symptoms bothersome but not daily ? 3 = symptoms bothersome and daily 4 = symptoms affect daily activities 5 = symptoms are incapacitating, unable to do daily activities ? How bad is the heartburn: 0 ? Heartburn while lying down: 0 ? Heartburn when standing up: 0 ? Heartburn after meals: 0 ? Does heartburn change your diet: 0 ? Does heartburn wake you up from sleep: 0 ? Do you have difficulty swallowin ? Do you have pain with swallowin ? If you take medicine for your reflux, does this affect your daily life: 0 Satisfaction with present condition - satisfied or not satisfied: satisfied [facility] Medical History No pertinent past medical history Surgical History H/O abdominoplasty Hx of breast augmentation History of sleeve gastrectomy Family History Father No problems noted. Mother Hypertension Asthma Sister No problems noted. Sister No problems noted. Social History Alcohol intake: current Alcohol intake frequency: holidays/special occasions only Patient Tobacco Use Status: Never used Tobacco Physical Exam Vital Signs: Last Vital Signs Temp 97.1 F 08/04/24 09:23 Pulse 73 08/04/24 09:23 BP 138/85 08/04/24 09:23 Pulse Ox 96 08/04/24 09:23 Oxygen Delivery Method Room Air 08/04/24 09:23 Const General: cooperative and no acute distress Orientation/consciousness: patient oriented x3 Resp Effort & Inspection: normal respiratory effort Auscultation: clear to auscultation bilaterally Cardio Rate: regular rate Rhythm: regular rhythm GI Inspection: Yes normal to inspection and Yes incision (well healed) Palpation (GI): Soft to palpation and no masses Neuro General: patient oriented x3 Assessment & Plan Assessment & Plan (1) History of sleeve gastrectomy: Comment: 2019 Code(s): Z90.3 - Acquired absence of stomach [part of] Category: Surgical Plan: Check yearly labs. Discussed the importance of exercise with a goal of burning 2000 calories per week. Her meal plan is accurate and she will now follow this. She did have a month in [place] and therefore gained weight but is now ready to commit to a healthy plan. We will have her return to the office in 3 months, sooner should there be any problems or concerns
[2024-08-04 09:23] VITALS: BP 138/85; PULSE 73; TEMP 36.2; O2SAT 96; BMI 31.0
--- OUTSIDE RECORDS SUMMARY | 2024-08-04 10:06 | XMS_ITS | Data Portability ---
Author Organization ANISHA Lopez s, [address] Address [address] [place] [address] Assessment No assessment recorded. Plan of Treatment Reminders Order Date Submit Date Provider Last Modified By Organization Details Last Modified Time Details Appointments None recorded. Lab None recorded. Referral None recorded. Procedures None recorded. Surgeries None recorded. Imaging XR, foot, 3 or more view 2022 023 [facility], [address] [place], [address], 17:12:56 Medication Orders ibuprofen 800 mg tablet 2022 023 [id number], [address] [place], [address], 16:25:28 Patient TargetsNo targets recorded. Patient Instructions Encounter Date Encounter Id Patient Instructions Last Modified By Organization Details Last Modified Time 09/10/2022 [id number] Elevate injured extremity to help decrease swelling Ice the area 15 minutes every 3-4 hours ibuprofen and/or tylenol as needed for pain Follow up with [facility] or your pcp if the injury fails to heal in the coming weeks [email or web address] Not available 09/10/2022 16:25:05 Reason for Referral None Reported. Results Created Date Observation Date Name Description Value Unit Range Abnormal Flag Note LastModifiedBy Organization Detail LastModifiedTime 09/11/19 23 09/10/2022 XR, foot, 3 or more view No observ ation record ed. [email or web address] [facility] [address] [place], [address], 09/10/2022 17:18:10 Result Notes None recorded. Problems No Known Problems Procedures Surgical History Date Name Laterality Status Provider Name and Address Organization Details Recorded Time 09/11/19 23 Joe Bandage completed Josh Ramirez NP [address] [facility] [place], [address], [place] - [facility] 09/10/2022 16:27:16 bariatric operative procedure completed Hope Leal PA - [facility] 09/10/2022 15:49:25 Nipple/areola reconstruction completed Hope Leal PA - [facility] 09/10/2022 15:49:48 abdominoplasty completed Hope Leal PA - [facility] 09/10/2022 15:49:58 Imaging Results Imaging Date Name Status LastModified by Organiz ation Details LastModified Time 09/10/2022 XR, foot, 3 or more view completed [facility] [address] [facility] [place], [address], 09/10/2022 17:18:10 Procedure Notes None recorded. Medical Equipment None Reported. Allergies No known drug allergies Medications Name Sig Start Date Stop Date Status Note LastModified by Organization Details LastModified Time ibuprofen 800 mg tablet Take 1 tablet 3 times a day by oral route with meals for 10 days. 023 active Not Available Not Available Not Avai lable Vitals Date Recorded Body height Body mass index (BMI) Body weight Oxygen saturation Oxygen saturation in Arterial blood by Pulse oximetry Heart rate Respiratory rate Body temperature Systolic blood pressure Diastolic blood pressure Provider Name and Address Organization Details Last Updated DateTime 172.72 cm 30.7 kg/m2 85785.6 6 g 100 % 100 % 62 /min 16 /min 97.7 [degF] 130 mm[Hg] 80 mm[Hg] Hope Leal PA - [facility] 15:47:56 Social History Question Answer Notes LastModified by Organizat ion Details LastModified Time Tobacco Smoking Status Never Smoker Hope perez PA - [facility] 09/10/2022 15:49:14 What Is Your Level Of Alcohol Consumption? Occasional Information not available 09/10/2022 How Many Times Per Week Do You Consume Alcohol? Less Than 1 Time Per Week [email or web address] Information not available 09/10/2022 Have You Had Direct Contact, Or Contact During Intimacy, With Monkeypox Rash, Scabs, Or Body Fluids From A Person With Monkeypox? No [email or web address] Information not available 09/10/2022 Do You Use Any Illicit Or Recreational Drugs? No [email or web address] Information not available 09/10/2022 Have You Recently Traveled Abroad? No [email or web address] Information not available 09/10/2022 Do You Or Have You Ever Used Any Other Forms Of Tobacco Or Nicotine? No [email or web address] Information not available 09/10/2022 Sex: Unknown Functional Status None recorded. Mental Status None recorded. Family History Relationship Description Onset Age of this Age Resolved Age Notes LastModified by Organization Details LastModified Time Mother Hypertensive disorder [email or web address] Not available 2022 15:48:37 Mother Hyperlipidem ia Not available 2022 15:48:55 Medical History No medical history recorded. Gynecological History Statement/Question Response Date of LMP 08/13/2022 Is there any chance of ? No LMP Definite Obstetrics History GPAL:G 0 P 0 0 0 0 Past Encounters Encounter ID Performer Location Encounter Start Date Encounter Closed Date Diagnosis/Indication Diagnosis SNOMED-CT Code Diagnosis ICD10 Code Diagnosis Note [id number] [address] [facility] [address] [place] [phone] 02/14/2019 18:46:54 02/14/2019 19:38:07 [id number] [address] [facility] [address] [place] [phone] [id number] 10/19/2018 10:17:56 10/19/2018 10:57:29 [id number] Josh Ramirez NP [address] [facility] [address] [place] [address] 09/10/2022 14:47:42 09/10/2022 16:30:14 Contusion of lesser toe of left foot [id number] S90.122A Health Concerns Section Related Observation LastModified by Organization Eduardo ls LastModified Time None Recorded Concern Status LastModified by Organization Details LastModified Time None Recorded Advance Directives Directive None Recorded Payers Encounter Date Sequence Insurance Name Policy Number Policy Walker Covered Member ID Walker Member ID Guarantor Name 09/10/2022 1 [facility] (MEDICAID REPLACEMENT - HMO) [id number] Sena Riley [id number] Sena Riley Notes Date Note Type Note Provider Name and Address Organization Details Recorded Time 3 text/html ToesReported bypatient.source of patient informationInformation obtained from patient; Patient arrived at Urgent Care ambulatory Location:left; dorsal Quality:aching; sharp; constant; worsening Severity:moderate; pain level 09/09 Duration:09/09/2022 days Timing:acute Context:contusion to left little toe. Alleviating Factors:ice; rest Aggravating Factors:cannot identify; walking Associated Symptoms:no weakness; no numbness; no tingling; no swelling; no redness; no warmth; no ecchymosis; no catching/locking; no popping/clicking; no buckling; no grinding; no instability; no drainage; no fever; no chills Previous Surgery:none Prior Imaging:none Josh Ramirez NP [address] [place], [address], [place] - [facility] 09/10/2022 16:27:43 OBGyn Episode No OBEpisode recorded.
--- OUTSIDE RECORDS SUMMARY | 2024-08-04 10:06 | XMS_ITS | Clinical Summary ---
Author Organization [employer] Address [address] [facility] [address] [place] [id number] Care Team Providers Care Quality Control Supervisor Name Role Phone Unavailable Primary Care Provider Unavailabl e Allergies No known active allergies Medications No known medications Social History Tobacco Use Types Packs/Day Years Used Date Smoking Tobacco: Never Passive Smoke Exposure: Never Smokeless Tobacco: Never Tobacco Cessation:Counseling Given: No Alcohol Use Standard Drinks/Week Comments Never 0 (1 standard drink = 0.6 oz pur e alcohol) Comments Unknown Sex and Gender Information Value Date Recorded Sex Assigned at Female 02/05/2023 9:45 AM EDT Legal Sex Female 9:35 AM EDT Gender Identity Female 02/05/2023 9:45 AM EDT Sexual Orientation Straight 02/05/2023 9: 45 AM EDT Last Filed Vital Signs Vital Sign Reading Time Taken Comments Blood Pressure 124/74 02/05/2023 9:51 AM EDT Pulse - - Temperature - - Respiratory Rate - - Oxygen Saturation - - Inhaled Oxygen Concentration - - Weight - - Height - - Body Mass Index - - Plan of Treatment Health Maintenance Due Date Last Done Comments Dental Oral Exam 1996 Dental Prophylaxis 1996 Dental X-Ray: Bitewings 1996 Dental X-Ray: Full Mouth 1996 Depression Screening 1996 HIV Screening 1996 Lipid Panel 1996 SDOH Screening 1996 Alcohol/Substance Use Screening 2008 Family Planning (PISQ) 2011 Hepatitis A Vaccines (2 of 2 - 2-dose series) 08/15/2012 02/15/2012 Hepatitis C Screening 2014 HPV Vaccines (2 - 3-dose series) 10/23/2015 09/25/2015 Pap Smear 2017 COVID-19 Vaccine () 01/02/2024 02/07/2021, 01/17/2021 Influenza Vaccine (#1) 2024 02/17/2019, 2013 Tobacco Screening 02/06/2024 02/05/2023 DTaP/Tdap/Td Vaccines (8 - Td or Tdap) 02/17/2029 02/17/2019, 02/15/2009, 11/29/2000, Additional history exists Zoster Vaccines (1 of 2) 2046 RSV Patients and Patients Aged 60 years or older (1 - 1-dose 75+ series) 2071 HIB Vaccines Completed 04/30/1998, 04/03, 12/31/1997, Additional history exists Hepatitis B Vaccines Completed 04/30/1998, 01/15/1997, 1996, Additional history exists IPV Vaccines Completed 04/30/1998, 04/03, 12/31/1997, Additional history exists Meningococcal Vaccine Aged Out 09/25/2015, 011 No longer eligible based on patient's age to complete this topic Pneumococcal Vaccine: Pediatrics (0 to 5 Years) and At-Risk Patients (6 to 49) Years) Aged Out No longer eligible based on patient's age to complete this topic RSV under 20 months Aged Out No longe r eligible based on patient's age to complete this topic Rotavirus Vaccines Aged Out No longer eligible based on patient's age to complete this topic Insurance [facility]
== END 2024-08-04 09:46 | disposition home or self-care (01) ==
LOC: HO.HBS 09:20
PROVIDERS: PCP Internal Medicine; Visit Provider Physician Assistant Surgical
DX: E66.811 Obesity, class 1 (principal); Z68.31 Body mass index [BMI] 31.0-31.9, adult; Z90.3 Acquired absence of stomach [part of]; Z98.84 Bariatric surgery status
CPT/HCPCS: 99213